=== PATIENT | female | born 1940 | race Caucasian/White ===

== ENCOUNTER 2018-10-08 11:55 | Observation (INO) | payer MEDICARE ==
[~2018-10-08] VITALS: Ht 157.5 cm; Wt 72.7 kg
[~2018-10-08 11:55] MED LIST: ALPR-304 PO; ASPI-1264 PO; ATOR10TA87 PO; CLOP75TA35 PO; FLUT1AER IH; FURO-150 PO; HYDR-4353 PO; LEVO112T61 PO; MECL-111 PO; METO-539 PO; PANT-47 PO; POTA10TA10 PO; VENL150C58 PO
[2018-10-08 12:42] LABS: BASOPHILS # (AUTO) 0.1 X10'3 (0-0.2); EOSINOPHILS # (AUTO) 0.1 X10'3 (0-0.9); HEMATOCRIT 42.6 % (35.0-45.0); HEMOGLOBIN 14.5 g/dl (12.0-16.0); LYMPHOCYTES # (AUTO) 2.7 X10'3 (1.1-4.8); LYMPHOCYTES % (AUTO) 29.4 % (21-51); MEAN CORPUSCULAR HEMOGLOBIN 33.7 PG (27.0-31.0); MEAN CORPUSCULAR HGB CONC 34.1 g/dL (33.0-36.5); MEAN CORPUSCULAR VOLUME 98.8 FL (78-98); MEAN PLATELET VOLUME 8.8 FL (7.4-10.4); MONOCYTES # (AUTO) 0.5 X10'3 (0-0.9); MONOCYTES % (AUTO) 5.9 % (2-12); NEUTROPHILS # (AUTO) 5.7 X10'3 (1.8-7.7); NEUTROPHILS % (AUTO) 62.7 % (42-75); PLATELET COUNT 231 X10'3 (140-440); RED BLOOD COUNT 4.31 X10'6 (4.20-5.60); RED CELL DISTRIBUTION WIDTH 13.4 % (11.5-14.5); WHITE BLOOD COUNT 9.1 X10'3 (4.5-11.0)
[2018-10-08 13:08] LABS: ALANINE AMINOTRANSFERASE 19 U/L (12-78); ALBUMIN 3.2 G/DL (3.4-5.0); ALBUMIN/GLOBULIN RATIO 0.7 (1.1-1.5); ALKALINE PHOSPHATASE 116 IU/L (46-116); ANION GAP 6 (8-16); ASPARTATE AMINO TRANSFERASE 20 U/L (10-37); BILIRUBIN,TOTAL 0.7 MG/DL (0.1-1.0); BLOOD UREA NITROGEN 16 MG/DL (7-18); BUN/CREATININE RATIO 21.9 (6.6-38.0); CALCIUM 8.8 MG/DL (8.5-10.1); CHLORIDE 104 MMOL/L (99-107); CREATININE 0.73 MG/DL (0.40-0.90); GLUCOSE 98 MG/DL (70-104); PARTIAL THROMBOPLASTIN TIME 28 SECONDS (22-32); POTASSIUM 4.5 MMOL/L (3.5-5.1); SODIUM 139 MMOL/L (135-145); TOTAL PROTEIN 7.6 G/DL (6.4-8.2); eGFR 77 ML/MIN
[2018-10-08] MEDS ORDERED: mag hydrox/Alum hydrox/simeth 30ml oral suspension PO PRN (14:45)
[2018-10-08] MEDS ORDERED: aspirin 325mg tablet PO ONE (14:45)
[2018-10-08] MEDS ORDERED: magnesium 2GM in 50ml NS 50 ML IV PRN (14:45)
[2018-10-08] MEDS ORDERED: magnesium 4gm in 100ml NS 100 ML IV PRN (14:45)
[2018-10-08] MEDS ORDERED: ondansetron/PF 4mg/2ml inj IV PRN (14:45)
[2018-10-08] MEDS ORDERED: nitroGLYCERIN 0.4mg SUBLingual tab SL PRN ×2 (14:45)
[2018-10-08] MEDS ORDERED: magnesium hydroxide 30ml (MOM) UD suspension PO PRN (14:45)
[2018-10-08] MEDS ORDERED: magnesium Cl slow-release 64mg tablet PO PRN (14:45)
[2018-10-08] MEDS ORDERED: aminophylline 250mg/10ml inj. IV PRN (14:45)
[2018-10-08] MEDS ORDERED: potassium CL 10mEq/100ml bag 100 ML IV PRN (14:45)
[2018-10-08] MEDS ORDERED: regadenoson 0.4mg/5ml syringe IV ONE (14:45)
[2018-10-08] MEDS ORDERED: potassium Cl 40MEQ/NS 500ml 500 ML IV PRN (14:45)
[2018-10-08] MEDS ORDERED: metoprolol tartrate 1mg/ml inj IV PRN (14:45)
[2018-10-08] MEDS ORDERED: acetaminophen 325mg tablet PO PRN ×2 (14:45)
[2018-10-08] MEDS ORDERED: potassium Cl 20 mEq SR tablet PO PRN ×2 (14:45)
[2018-10-08] MEDS ORDERED: HYDROcodone/acetaminophen 10/325mg tab PO PRN (15:40)
[2018-10-08] MEDS ORDERED: ALPRAZolam 0.25mg tablet PO PRN (15:40)
[2018-10-08 17:01] LABS: MAGNESIUM 1.9 MG/DL (1.5-2.4)
--- NOTE | 2018-10-08 17:39 | NUR ---
Pt arrived from ED and transferred to bed in 313 on the ACCE unit. Pt ambulated with assistance to the bed, however she stated that she was dizzy. Pt will be banded with Fall Risk band. Pt oriented to room, call light usage. technical instructor in room doing an echo with a bubble study.
[2018-10-08 18:00] VITALS: BP 143/78
--- NOTE | 2018-10-08 18:17 | NUR ---
Problems reprioritized. Patient report given, questions answered & plan of care reviewed with GERRI [place].
--- NOTE | 2018-10-08 18:42 | NUR ---
Patient in room MED 313. I have received report from Art RN and had the opportunity to ask questions and assume patient care.
[2018-10-08] MEDS: furosemide 20 MG/2 ML vial IV SCH (20:11)
[2018-10-08 22:00] VITALS: BP 147/75
[2018-10-09] VITALS (11 sets, daily range): BP systolic 115–156; BP diastolic 60–81
[2018-10-09 01:27] LABS: BASOPHILS # (AUTO) 0.1 X10'3 (0-0.2); BASOPHILS % (AUTO) 1.2 % (0-1); EOSINOPHILS # (AUTO) 0.1 X10'3 (0-0.9); EOSINOPHILS % (AUTO) 1.5 % (0-6); HEMATOCRIT 42.1 % (35.0-45.0); HEMOGLOBIN 14.2 g/dl (12.0-16.0); LYMPHOCYTES # (AUTO) 2.5 X10'3 (1.1-4.8); LYMPHOCYTES % (AUTO) 29.7 % (21-51); MEAN CORPUSCULAR HEMOGLOBIN 33.1 PG (27.0-31.0); MEAN CORPUSCULAR HGB CONC 33.6 g/dL (33.0-36.5); MEAN CORPUSCULAR VOLUME 98.4 FL (78-98); MONOCYTES # (AUTO) 0.6 X10'3 (0-0.9); MONOCYTES % (AUTO) 7.5 % (2-12); NEUTROPHILS % (AUTO) 60.1 % (42-75); PLATELET COUNT 218 X10'3 (140-440); RED BLOOD COUNT 4.28 X10'6 (4.20-5.60); RED CELL DISTRIBUTION WIDTH 13.2 % (11.5-14.5); WHITE BLOOD COUNT 8.3 X10'3 (4.5-11.0)
[2018-10-09 01:35] LABS: ALBUMIN 3.1 G/DL (3.4-5.0); ANION GAP 6 (8-16); BLOOD UREA NITROGEN 18 MG/DL (7-18); BUN/CREATININE RATIO 24.3 (6.6-38.0); CHLORIDE 104 MMOL/L (99-107); CHOL/HDL RATIO 2.3 (0.00-4.99); CHOLESTEROL 136 MG/DL (0-200); CREATININE 0.74 MG/DL (0.40-0.90); GLUCOSE 94 MG/DL (70-104); HDL CHOLESTEROL 59 MG/DL (35-60); LDL CHOLESTEROL 68 MG/DL (50-100); MAGNESIUM 1.9 MG/DL (1.5-2.4); POTASSIUM 3.5 MMOL/L (3.5-5.1); SODIUM 139 MMOL/L (135-145); TOTAL CARBON DIOXIDE 29.1 MMOL/L (24-32); TRIGLYCERIDES 75 MG/DL (20-135); eGFR 76 ML/MIN
[2018-10-09] MEDS ORDERED: pantoprazole 40mg Tablet.DR PO SCH (08:00)
[2018-10-09] MEDS ORDERED: clopidogrel 75mg tablet PO SCH (08:00)
[2018-10-09] MEDS ORDERED: venlafaxine XR 75mg capsule (Q24H) PO SCH (08:00)
[2018-10-09] MEDS ORDERED: levoTHYROXINE 112mcg tablet PO SCH (08:00)
[2018-10-09] MEDS ORDERED: K and/or MAG REPLACEMENT MC SCH (08:00)
[2018-10-09] MEDS ORDERED: metoprolol succinate 25mg (24-HOUR) SR. Tablet PO SCH (08:00)
[2018-10-09] MEDS ORDERED: atorvastatin 10mg tablet PO SCH (08:00)
[2018-10-09] MEDS ORDERED: aspirin 325mg tablet PO SCH (08:00)
[2018-10-09] MEDS ORDERED: enoxaparin 40mg/0.4ml syringe SQ SCH (08:00)
[2018-10-09] MEDS ORDERED: aminophylline inj. 10 ML IV ONE (08:47)
[2018-10-09] MEDS ORDERED: regadenoson 0.4mg/5ml syringe IV ONE (08:47)
--- NOTE | 2018-10-09 08:55 | NUR ---
Malnutrition consult. Patient eating 100% of meals, good appetite meeting needs. No muscle weakness. No recent weight loss, patient at [facility]. Appears well nourished. No edema. No malnutrition at this time. Will continue to follow. Addendum: 10/09/18 at [address] Amended: Links added.
--- NOTE | 2018-10-09 11:12 | NUR ---
Homer results posted Paged Dr. Em- "Re; Yamini Rocha- Dania report is posted. let me know if patient will discharge? thank you. Samantha BUNDY [phone]"
[2018-10-09] MEDS: furosemide 20 MG/2 ML vial IV SCH (11:24)
--- NOTE | 2018-10-09 15:00 | NUR ---
PROVIDED PATIENT WITH DISCHARGE INSTRUCTIONS, PATIENT HAS NO NEW PRESCRIPTIONS AND VERBALIZES UNDERSTANDING OF FOLLOW UP INSTRUCTIONS WITH HER PRIMARY CARE DOCTOR. IV REMOVED, CATHETER INTACT, MINIMAL BLEEDING CLEAN GAUZE APPLIED AND SECURED WITH TAPE. PATIENT AWAITING HER RIDE TO GO HOME. PATIENT GOT HERSELF DRESSED AND DENIES ANY QUESTIONS OR CONCERNS.
== END 2018-10-09 15:30 | disposition home or self-care (01) ==
LOC: ER 11:56 → MED 3N 16:26 → EDBEDREQ 16:33
PROVIDERS: ADMIT Hospitalist; ATTEND Hospitalist
DX: R07.2 Precordial pain (principal); I25.119 Atherosclerotic heart disease of native coronary artery with unspecified angina pectoris; I11.0 Hypertensive heart disease with heart failure; I50.9 Heart failure, unspecified; E78.00 Pure hypercholesterolemia, unspecified; E78.5 Hyperlipidemia, unspecified; I25.2 Old myocardial infarction; J44.9 Chronic obstructive pulmonary disease, unspecified; Z87.11 Personal history of peptic ulcer disease; Z79.82 Long term (current) use of aspirin; Z88.0 Allergy status to penicillin
CPT/HCPCS: 36415; 71045; 78452; 80048; 80053; 80061; 83735; 83880; 84484; 85025; 85610; 85730; 87070; 93005; 93017; 93306; 96374; 96376; 99284; A9500; G0378; J0280; J1940; J1650

== ENCOUNTER 2019-03-03 17:08 | Emergency (ER) | payer MEDICARE ==
[~2019-03-03] VITALS: Ht 162.6 cm; Wt 64.5 kg
[~2019-03-03 17:08] MED LIST changes: -FLUT1AER IH; -MECL-111 PO
--- NOTE | 2019-03-03 17:57 | NUR ---
Dr. Cabello is at the bedside at this time.
[2019-03-03 18:03] LABS: BASOPHILS # (AUTO) 0.1 X10'3 (0-0.2); BASOPHILS % (AUTO) 1.1 % (0-1); EOSINOPHILS # (AUTO) 0.1 X10'3 (0-0.9); EOSINOPHILS % (AUTO) 1.2 % (0-6); HEMATOCRIT 45.6 % (35.0-45.0); HEMOGLOBIN 15.5 g/dl (12.0-16.0); LYMPHOCYTES # (AUTO) 2.8 X10'3 (1.1-4.8); MEAN CORPUSCULAR HEMOGLOBIN 33.6 PG (27.0-31.0); MEAN CORPUSCULAR HGB CONC 34.1 g/dL (33.0-36.5); MEAN CORPUSCULAR VOLUME 98.4 FL (78-98); MONOCYTES # (AUTO) 0.6 X10'3 (0-0.9); MONOCYTES % (AUTO) 6.1 % (2-12); NEUTROPHILS # (AUTO) 5.8 X10'3 (1.8-7.7); NEUTROPHILS % (AUTO) 61.6 % (42-75); PLATELET COUNT 260 X10'3 (140-440); RED BLOOD COUNT 4.63 X10'6 (4.20-5.60); RED CELL DISTRIBUTION WIDTH 13.2 % (11.5-14.5); WHITE BLOOD COUNT 9.4 X10'3 (4.5-11.0)
[2019-03-03 18:14] LABS: PARTIAL THROMBOPLASTIN TIME 25 SECONDS (22-32)
[2019-03-03 18:25] LABS: ALANINE AMINOTRANSFERASE 16 U/L (12-78); ALBUMIN 3.3 G/DL (3.4-5.0); ALBUMIN/GLOBULIN RATIO 0.7 (1.1-1.5); ALKALINE PHOSPHATASE 123 IU/L (46-116); ANION GAP 7 (8-16); ASPARTATE AMINO TRANSFERASE 21 U/L (10-37); BILIRUBIN,TOTAL 0.4 MG/DL (0.1-1.0); BLOOD UREA NITROGEN 27 MG/DL (7-18); BUN/CREATININE RATIO 39.1 (6.6-38.0); CALCIUM 9.4 MG/DL (8.5-10.1); CHLORIDE 105 MMOL/L (99-107); CREATININE 0.69 MG/DL (0.40-0.90); GLUCOSE 101 MG/DL (70-104); POTASSIUM 3.9 MMOL/L (3.5-5.1); SODIUM 139 MMOL/L (135-145); TOTAL CARBON DIOXIDE 26.8 MMOL/L (24-32); eGFR 82 ML/MIN
--- NOTE | 2019-03-03 18:28 | NUR ---
Bedside commode brought to the room and pt given water to drink, with Dr. Bell's verbal ok, to encourage ability to void. Lab results are pending at this time.
[2019-03-03] MEDS ORDERED: traMADol 50MG tablet PO ONE (20:20)
[2019-03-03] MEDS ORDERED: AZIT-72 PO (20:20)
[2019-03-03] MEDS ORDERED: TRAM50TA2 PO (20:20)
[2019-03-03 20:30] VITALS: BP 153/65
[2019-03-08] MEDS ORDERED: HYDR-3965 PO (17:02)
== END 2019-03-03 20:45 | disposition home or self-care (01) ==
LOC: ER 17:09
DX: M54.6 Pain in thoracic spine (principal); R07.89 Other chest pain; J21.9 Acute bronchiolitis, unspecified; M81.0 Age-related osteoporosis without current pathological fracture; I25.10 Atherosclerotic heart disease of native coronary artery without angina pectoris; E78.00 Pure hypercholesterolemia, unspecified; I25.2 Old myocardial infarction; M19.90 Unspecified osteoarthritis, unspecified site; F17.200 Nicotine dependence, unspecified, uncomplicated; I11.0 Hypertensive heart disease with heart failure; I50.9 Heart failure, unspecified; Z95.5 Presence of coronary angioplasty implant and graft; Z98.890 Other specified postprocedural states; Z88.0 Allergy status to penicillin; Z79.82 Long term (current) use of aspirin; Z79.899 Other long term (current) drug therapy
CPT/HCPCS: 36415; 71045; 71250; 80053; 84484; 85025; 85610; 85730; 93005; 99284

== ENCOUNTER → 2019-03-08 | Emergency (ER) | payer MEDICARE ==
[~2019-03-08] VITALS: Ht 160 cm; Wt 65.0 kg
[~2019-03-08] MED LIST changes: +AZIT-72 PO; +HYDR-3965 PO; +TRAM50TA2 PO
--- NOTE | 2019-03-08 13:30 | NUR ---
[facility] CALLED FOR NEURO CONSULT. AWAITING CALL BACK FROM DR. DEUCE FIGUEROA
--- NOTE | 2019-03-08 15:50 | NUR ---
patient to ct.
[2019-03-08 16:23] VITALS: BP 141/97
== END | disposition home or self-care (01) ==
LOC: ER 12:47
DX: S22.059D Unspecified fracture of T5-T6 vertebra, subsequent encounter for fracture with routine healing (principal); I25.10 Atherosclerotic heart disease of native coronary artery without angina pectoris; I11.0 Hypertensive heart disease with heart failure; I50.9 Heart failure, unspecified; E78.00 Pure hypercholesterolemia, unspecified; I25.2 Old myocardial infarction; J44.9 Chronic obstructive pulmonary disease, unspecified; M19.90 Unspecified osteoarthritis, unspecified site; M81.0 Age-related osteoporosis without current pathological fracture; F17.200 Nicotine dependence, unspecified, uncomplicated; M54.2 Cervicalgia; Z95.5 Presence of coronary angioplasty implant and graft; Z98.890 Other specified postprocedural states; Z88.0 Allergy status to penicillin; Z79.82 Long term (current) use of aspirin; Z79.899 Other long term (current) drug therapy; X58.XXXD Exposure to other specified factors, subsequent encounter
CPT/HCPCS: 72125; 72128; 99285

== ENCOUNTER 2019-03-26 15:48 | Emergency (ER) | payer MEDICARE ==
[~2019-03-26] VITALS: Ht 162.6 cm; Wt 66.2 kg
[~2019-03-26 15:48] MED LIST changes: -AZIT-72 PO; -HYDR-3965 PO; -TRAM50TA2 PO
[2019-03-26 17:32] VITALS: BP 155/79
--- NOTE | 2019-04-02 12:45 | NUR ---
LEFT MESSAGE [facility] PATIENT TO CALL REGARDING RADIOLOGY RESULTS
[2019-05-02] MEDS ORDERED: METO25TA6 PO (14:55)
[2019-05-07] MEDS ORDERED: IPRA3AMP9 NEB (12:08)
[2019-05-07] MEDS ORDERED: LEVO500T2 PO (12:08)
[2019-05-07] MEDS ORDERED: PRED10TA23 PO (12:12)
[2019-05-07] MEDS ORDERED: FURO-150 PO (14:50)
[2019-05-07] MEDS ORDERED: LISI2.5T2 PO (14:51)
== END 2019-03-26 17:35 | disposition home or self-care (01) ==
LOC: ER 15:48
DX: S46.811A Strain of other muscles, fascia and tendons at shoulder and upper arm level, right arm, initial encounter (principal); S00.03XA Contusion of scalp, initial encounter; M25.551 Pain in right hip; I25.10 Atherosclerotic heart disease of native coronary artery without angina pectoris; I11.0 Hypertensive heart disease with heart failure; I50.9 Heart failure, unspecified; E78.00 Pure hypercholesterolemia, unspecified; I25.2 Old myocardial infarction; J44.9 Chronic obstructive pulmonary disease, unspecified; M19.90 Unspecified osteoarthritis, unspecified site; F32.9 Major depressive disorder, single episode, unspecified; Z98.61 Coronary angioplasty status; Z98.890 Other specified postprocedural states; Z88.0 Allergy status to penicillin; Z79.82 Long term (current) use of aspirin; Z79.899 Other long term (current) drug therapy; Z90.5 Acquired absence of kidney; W01.0XXA Fall on same level from slipping, tripping and stumbling without subsequent striking against object, initial encounter; Y93.89 Activity, other specified; Y92.89 Other specified places as the place of occurrence of the external cause; Y99.8 Other external cause status
CPT/HCPCS: 70450; 73030; 73502; 99284

== ENCOUNTER 2020-01-21 15:55 | Observation (INO) | payer MEDICARE, OTHER ==
[~2020-01-21] VITALS: Ht 162.6 cm; Wt 68.2 kg
[~2020-01-21 15:55] MED LIST changes: -ASPI-1264 PO; -FURO-150 PO; +IPRA3AMP31 NEB; +LISI2.5T2 PO; -METO-539 PO; +METO25TA6 PO; -POTA10TA10 PO
[2020-01-21] MEDS ORDERED: HYDROcodone/acetaminophen 5mg/325mg tablet PO ONE (16:45)
--- NOTE | 2020-01-21 17:00 | NUR ---
PT IS RESTING QUIETLY ON GURNEY
--- NOTE | 2020-01-21 19:47 | NUR ---
PT IS RESTING QUIETLY ON GURNEY, SAID SHE WAS UNABLE TO AMB EARLIER DUE TO PAIN IN RT HIP, PT IS AWARE SHE IS BEING ADMITTED, WAITING FOR HOSPITALIST, EATING SANDWICH, AND WATER, CHRISTI WELL, FAMILY IS ALSO AWARE OF PLAN
[2020-01-21] MEDS ORDERED: normal saline 1000ml 1,000 ML IV SCH (20:26)
[2020-01-21] MEDS ORDERED: ondansetron/PF 4mg/2ml inj IV PRN (20:30)
[2020-01-21] MEDS ORDERED: magnesium 4gm in 100ml NS 100 ML IV PRN (20:30)
[2020-01-21] MEDS ORDERED: acetaminophen 325mg tablet PO PRN ×2 (20:30)
[2020-01-21] MEDS ORDERED: magnesium Cl slow-release 64mg tablet PO PRN (20:30)
[2020-01-21] MEDS ORDERED: morphine 2 MG/ML inj. syringe IV PRN ×2 (20:30)
[2020-01-21] MEDS ORDERED: HYDROcodone/acetaminophen 10/325mg tab PO PRN (20:30)
[2020-01-21] MEDS ORDERED: potassium Cl 20 mEq SR tablet PO PRN ×2 (20:30)
[2020-01-21] MEDS ORDERED: magnesium 2GM in 50ml NS 50 ML IV PRN (20:30)
[2020-01-21] MEDS ORDERED: potassium CL 10mEq/100ml bag 100 ML IV PRN ×2 (20:30)
[2020-01-21] MEDS ORDERED: temazepam 15mg capsule PO PRN (21:00)
[2020-01-21 21:02] LABS: BASOPHILS # (AUTO) 0.1 X10'3 (0-0.2); EOSINOPHILS # (AUTO) 0.1 X10'3 (0-0.9); EOSINOPHILS % (AUTO) 1.2 % (0-6); HEMATOCRIT 38.6 % (35.0-45.0); HEMOGLOBIN 12.9 g/dl (12.0-16.0); LYMPHOCYTES # (AUTO) 2.8 X10'3 (1.1-4.8); LYMPHOCYTES % (AUTO) 29.2 % (21-51); MEAN CORPUSCULAR HEMOGLOBIN 32.9 PG (27.0-31.0); MEAN CORPUSCULAR HGB CONC 33.3 g/dL (33.0-36.5); MEAN CORPUSCULAR VOLUME 98.9 FL (78-98); MONOCYTES # (AUTO) 0.7 X10'3 (0-0.9); MONOCYTES % (AUTO) 7.8 % (2-12); NEUTROPHILS # (AUTO) 5.8 X10'3 (1.8-7.7); NEUTROPHILS % (AUTO) 60.8 % (42-75); PLATELET COUNT 272 X10'3 (140-440); RED BLOOD COUNT 3.91 X10'6 (4.20-5.60); RED CELL DISTRIBUTION WIDTH 13.3 % (11.5-14.5); WHITE BLOOD COUNT 9.6 X10'3 (4.5-11.0)
[2020-01-21 21:18] LABS: ANION GAP 7 (8-16); BLOOD UREA NITROGEN 18 MG/DL (7-18); BUN/CREATININE RATIO 23.4 (6.6-38.0); CALCIUM 8.8 MG/DL (8.5-10.1); CHLORIDE 104 MMOL/L (99-107); CREATININE 0.77 MG/DL (0.40-0.90); GLUCOSE 165 MG/DL (70-104); POTASSIUM 3.8 MMOL/L (3.5-5.1); SODIUM 136 MMOL/L (135-145); TOTAL CARBON DIOXIDE 25.4 MMOL/L (24-32); eGFR 72 ML/MIN
[2020-01-21 21:45] VITALS: BP 116/63
[2020-01-21 21:50] VITALS: BP 116/63
[2020-01-21] MEDS: HYDROcodone/acetaminophen 5mg/325mg tablet PO PRN (22:13)
[2020-01-22] MEDS: HYDROcodone/acetaminophen 5mg/325mg tablet PO PRN ×2 (04:47→10:40)
[2020-01-22 06:00] VITALS: BP 142/64
--- NOTE | 2020-01-22 06:05 | NUR ---
received report from mimi herrera
--- NOTE | 2020-01-22 06:13 | NUR ---
Problems reprioritized. Patient report given, questions answered & plan of care reviewed with Cristin TALLEY.
[2020-01-22 07:23] LABS: BASOPHILS # (AUTO) 0.1 X10'3 (0-0.2); EOSINOPHILS # (AUTO) 0.2 X10'3 (0-0.9); EOSINOPHILS % (AUTO) 2.1 % (0-6); HEMATOCRIT 39.3 % (35.0-45.0); HEMOGLOBIN 13.2 g/dl (12.0-16.0); LYMPHOCYTES # (AUTO) 2.8 X10'3 (1.1-4.8); LYMPHOCYTES % (AUTO) 30.2 % (21-51); MEAN CORPUSCULAR HEMOGLOBIN 33.3 PG (27.0-31.0); MEAN CORPUSCULAR HGB CONC 33.6 g/dL (33.0-36.5); MEAN CORPUSCULAR VOLUME 99.2 FL (78-98); MEAN PLATELET VOLUME 8.4 FL (7.4-10.4); MONOCYTES # (AUTO) 0.9 X10'3 (0-0.9); MONOCYTES % (AUTO) 9.5 % (2-12); NEUTROPHILS # (AUTO) 5.3 X10'3 (1.8-7.7); NEUTROPHILS % (AUTO) 57.2 % (42-75); PLATELET COUNT 294 X10'3 (140-440); RED BLOOD COUNT 3.96 X10'6 (4.20-5.60); RED CELL DISTRIBUTION WIDTH 13.4 % (11.5-14.5); WHITE BLOOD COUNT 9.3 X10'3 (4.5-11.0)
[2020-01-22 07:37] LABS: ANION GAP 8 (8-16); BLOOD UREA NITROGEN 17 MG/DL (7-18); BUN/CREATININE RATIO 26.2 (6.6-38.0); CALCIUM 8.7 MG/DL (8.5-10.1); CHLORIDE 104 MMOL/L (99-107); CREATININE 0.65 MG/DL (0.40-0.90); GLUCOSE 103 MG/DL (70-104); MAGNESIUM 1.9 MG/DL (1.5-2.4); POTASSIUM 3.8 MMOL/L (3.5-5.1); SODIUM 138 MMOL/L (135-145); TOTAL CARBON DIOXIDE 26.2 MMOL/L (24-32); eGFR 88 ML/MIN
[2020-01-22] MEDS ORDERED: K and/or MAG REPLACEMENT MC SCH (08:00)
[2020-01-22] MEDS ORDERED: heparin, porcine 5000 units/ml vial SQ SCH (08:00)
[2020-01-22] MEDS ORDERED: ALPRAZolam 0.25mg tablet PO PRN (09:35)
[2020-01-22 10:00] VITALS: BP 107/58
[2020-01-22] MEDS: ipratropium/albuterol 3ml nebule NEB SCH ×2 (11:22→16:10)
--- NOTE | 2020-01-22 11:28 | NUR ---
Student documentation: I have reviewed all interventions, assessments performed and documented by [place] [facility]. Student Medication Administration: For this medication-pass time frame, all medication were reviewed, dispensed, administered and documented per hospital policy by [place] [facility] [facility].
[2020-01-22] MEDS ORDERED: ipratropium/albuterol 3ml nebule NEB SCH (13:00)
--- NOTE | 2020-01-22 15:06 | NUR ---
Student documentation: I have reviewed assessment performed and documented by Shreya HASTINGS [facility].
--- NOTE | 2020-01-22 17:09 | NUR ---
pt d/c with instructions, understanding of instructions and w/all belongings in wheelchair accompanied by nursing staff to private vehicle to go home and f/u w/pcp
[2020-01-23] MEDS ORDERED: atorvastatin 10mg tablet PO SCH (08:00)
[2020-01-23] MEDS ORDERED: venlafaxine XR 75mg capsule (Q24H) PO SCH (08:00)
[2020-01-23] MEDS ORDERED: metoprolol tartrate 12.5mg (1/2 tablet) PO SCH (08:00)
[2020-01-23] MEDS ORDERED: pantoprazole 40mg Tablet.DR PO SCH (08:00)
[2020-01-23] MEDS ORDERED: levoTHYROXINE 112mcg tablet PO SCH (08:00)
[2020-01-23] MEDS ORDERED: clopidogrel 75mg tablet PO SCH (08:00)
[2020-01-23] MEDS ORDERED: lisinopril 2.5mg tablet PO SCH (08:00)
[2020-01-29] MEDS ORDERED: APIX5TAB3 PO (16:41)
[2020-01-29] MEDS ORDERED: MONT10TA26 PO (16:41)
[2020-01-29] MEDS ORDERED: FURO20TA4 PO (16:41)
== END 2020-01-22 17:00 | disposition home health service (06) ==
LOC: ER 15:55 → ORTHO 4S 20:26 → CMPBEDREQ 01-22 02:49
PROVIDERS: ADMIT Internal Medicine; ATTEND Family Medicine
DX: M25.551 Pain in right hip (principal); M25.561 Pain in right knee; J44.9 Chronic obstructive pulmonary disease, unspecified; I25.2 Old myocardial infarction; I25.119 Atherosclerotic heart disease of native coronary artery with unspecified angina pectoris; E78.5 Hyperlipidemia, unspecified; E03.9 Hypothyroidism, unspecified; I11.0 Hypertensive heart disease with heart failure; I50.9 Heart failure, unspecified; F32.9 Major depressive disorder, single episode, unspecified; G89.29 Other chronic pain; E78.00 Pure hypercholesterolemia, unspecified; F17.200 Nicotine dependence, unspecified, uncomplicated; Z95.5 Presence of coronary angioplasty implant and graft; Z90.5 Acquired absence of kidney; Z96.643 Presence of artificial hip joint, bilateral; Z87.11 Personal history of peptic ulcer disease; X50.1XXA Overexertion from prolonged static or awkward postures, initial encounter; Y93.E1 Activity, personal bathing and showering; Y92.002 Bathroom of unspecified non-institutional (private) residence as the place of occurrence of the external cause
CPT/HCPCS: 36415; 73502; 73560; 80048; 83735; 85025; 85610; 87081; 94640; 94760; 96360; 96361; 96372; 97161; 97530; 99285; G0378; J1644; J7030

== ENCOUNTER 2020-12-07 11:19 | Emergency (ER) | payer MEDICARE ==
[~2020-12-07] VITALS: Ht 165.1 cm; Wt 65.9 kg
[~2020-12-07 11:19] MED LIST changes: +APIX5TAB3 PO; +CLOP75TA34 PO; -CLOP75TA35 PO; -IPRA3AMP31 NEB; +LISI2.5T14 PO; -LISI2.5T2 PO; -METO25TA6 PO; +MONT10TA32 PO
[2020-12-07 11:51] LABS: BASOPHILS # (AUTO) 0.1 X10'3 (0-0.2); BASOPHILS % (AUTO) 0.4 % (0-1); EOSINOPHILS % (AUTO) 0.2 % (0-6); HEMATOCRIT 35.5 % (35.0-45.0); MEAN CORPUSCULAR HEMOGLOBIN 32.3 PG (27.0-31.0)
[2020-12-07 11:52] LABS: LYMPHOCYTES # (AUTO) 1.1 X10'3 (1.1-4.8); LYMPHOCYTES % (AUTO) 6.3 % (21-51); MEAN CORPUSCULAR HGB CONC 33.8 g/dL (33.0-36.5); MEAN CORPUSCULAR VOLUME 95.5 FL (78-98); MEAN PLATELET VOLUME 7.8 FL (7.4-10.4); MONOCYTES # (AUTO) 1.1 X10'3 (0-0.9); MONOCYTES % (AUTO) 6.2 % (2-12); NEUTROPHILS # (AUTO) 15.3 X10'3 (1.8-7.7); NEUTROPHILS % (AUTO) 86.9 % (42-75); PLATELET COUNT 276 X10'3 (140-440); RED BLOOD COUNT 3.72 X10'6 (4.20-5.60); RED CELL DISTRIBUTION WIDTH 12.6 % (11.5-14.5); WHITE BLOOD COUNT 17.6 X10'3 (4.5-11.0)
[2020-12-07 12:02] LABS: CLARITY,URINE CLOUDY (Clear); COLOR,URINE YELLOW (Yellow); GLUCOSE, URINE NEGATIVE (Neg); KETONES,URINE TRACE mg/dl (Neg); LEUKOCYTE ESTERASE ,URINE NEGATIVE (Neg); NITRITES, URINE NEGATIVE (Neg); OCCULT BLOOD,URINE TRACE-INTACT (Neg); PH,URINE 6.5 (4.8-8.0); PROTEIN,URINE TRACE mg/dl (Neg)
[2020-12-07 12:04] LABS: UA COLLECTION TYPE VOIDED
[2020-12-07 12:10] LABS: BACTERIA,URINE 1+ /HPF (Neg); HYALINE CASTS 0-3 /LPF (NEGATIVE); MUCUS STRANDS FEW /LPF (Neg); RBC,URINE 0-2 /HPF (0-2); SQUAMOUS EPITHELIAL CELL,UR MODERATE /LPF (FEW); WBC,URINE 0-4 /HPF (0-4)
[2020-12-07] MEDS ORDERED: levoFLOXACIN-Levaquin 500mg/D5 100 ML IV ONE (12:30)
[2020-12-07 12:31] LABS: ALANINE AMINOTRANSFERASE 8 U/L (12-78); ALBUMIN 2.8 G/DL (3.4-5.0); ALBUMIN/GLOBULIN RATIO 0.7 (1.1-1.5); ALKALINE PHOSPHATASE 123 IU/L (46-116); ANION GAP 8 (8-16); ASPARTATE AMINO TRANSFERASE 13 U/L (10-37); BILIRUBIN,TOTAL 0.7 MG/DL (0.1-1.0); BLOOD UREA NITROGEN 15 MG/DL (7-18); BUN/CREATININE RATIO 23.4 (6.6-38.0); CHLORIDE 105 MMOL/L (99-107); CREATININE 0.64 MG/DL (0.40-0.90); GLUCOSE 117 MG/DL (70-104); POTASSIUM 3.8 MMOL/L (3.5-5.1); SODIUM 138 MMOL/L (135-145); TOTAL CARBON DIOXIDE 25.5 MMOL/L (24-32); TOTAL PROTEIN 6.9 G/DL (6.4-8.2); eGFR 89 ML/MIN
[2020-12-07] MEDS ORDERED: LEVO500T89 PO (13:36)
[2020-12-07 14:38] VITALS: BP 114/65
== END 2020-12-07 15:17 | disposition home or self-care (01) ==
LOC: ER 11:20
DX: J18.9 Pneumonia, unspecified organism (principal); I11.0 Hypertensive heart disease with heart failure; I50.9 Heart failure, unspecified; I25.10 Atherosclerotic heart disease of native coronary artery without angina pectoris; E78.00 Pure hypercholesterolemia, unspecified; I25.2 Old myocardial infarction; J44.9 Chronic obstructive pulmonary disease, unspecified; Z20.822 Contact with and (suspected) exposure to COVID-19; Z98.890 Other specified postprocedural states; Z88.0 Allergy status to penicillin; Z79.01 Long term (current) use of anticoagulants; Z79.899 Other long term (current) drug therapy
CPT/HCPCS: 36415; 71045; 80053; 81001; 83605; 84145; 85025; 87040; 87635; 93005; 96365; 96366; 99285; C9803; J1956

== ENCOUNTER 2023-05-18 20:29 | Emergency (ER) | payer MEDICARE, MEDICAID ==
[~2023-05-18] VITALS: Ht 162.6 cm; Wt 78.2 kg
[~2023-05-18 20:29] MED LIST changes: +MONT-40 PO; -MONT10TA32 PO
[2023-05-18] MEDS ORDERED: acetaminophen 325mg tablet PO ONE (21:30)
[2023-05-18 22:22] LABS: BASOPHILS # (AUTO) 0.1 X10'3 (0-0.2); EOSINOPHILS # (AUTO) 0.1 X10'3 (0-0.9); EOSINOPHILS % (AUTO) 2.5 % (0-6); HEMATOCRIT 38.8 % (35.0-45.0); HEMOGLOBIN 12.9 g/dl (12.0-16.0); LYMPHOCYTES # (AUTO) 1.9 X10'3 (1.1-4.8); LYMPHOCYTES % (AUTO) 35.2 % (21-51); MEAN CORPUSCULAR HEMOGLOBIN 32.8 PG (27.0-31.0); MEAN CORPUSCULAR HGB CONC 33.2 g/dL (33.0-36.5); MEAN CORPUSCULAR VOLUME 98.8 FL (78-98); MEAN PLATELET VOLUME 7.8 FL (7.4-10.4); MONOCYTES # (AUTO) 0.6 X10'3 (0-0.9); MONOCYTES % (AUTO) 11.6 % (2-12); NEUTROPHILS # (AUTO) 2.7 X10'3 (1.8-7.7); NEUTROPHILS % (AUTO) 49.7 % (42-75); PLATELET COUNT 182 X10'3 (140-440); RED BLOOD COUNT 3.92 X10'6 (4.20-5.60); RED CELL DISTRIBUTION WIDTH 13.2 % (11.5-14.5); WHITE BLOOD COUNT 5.4 X10'3 (4.5-11.0)
[2023-05-18 22:36] LABS: ALANINE AMINOTRANSFERASE 15 U/L (12-78); ALBUMIN 2.9 G/DL (3.4-5.0); ALBUMIN/GLOBULIN RATIO 0.6 (1.1-1.5); ALKALINE PHOSPHATASE 120 IU/L (46-116); ANION GAP 2 (8-16); ASPARTATE AMINO TRANSFERASE 29 U/L (10-37); BILIRUBIN,TOTAL 0.3 MG/DL (0.1-1.0); BLOOD UREA NITROGEN 21 MG/DL (7-18); BUN/CREATININE RATIO 24.1 (10.0-20.0); CHLORIDE 103 MMOL/L (99-107); CREATININE 0.87 MG/DL (0.40-0.90); GLUCOSE 117 MG/DL (70-104); SODIUM 137 MMOL/L (135-145); TOTAL CARBON DIOXIDE 32.2 MMOL/L (24-32); TOTAL PROTEIN 7.5 G/DL (6.4-8.2); eCRCL 42 ML/MIN; eGFR 62 ML/MIN
[2023-05-18 22:44] LABS: PRO BRAIN NATRIURETIC PEPTIDE 1544 PG/ML (0-450)
[2023-05-18 22:52] VITALS: O2SAT 95
[2023-05-19 00:57] VITALS: BP 106/59; PULSE 67; RESP 17; TEMP 98.3
== END 2023-05-19 00:58 | disposition home or self-care (01) ==
LOC: ER 20:30
DX: R07.9 Chest pain, unspecified (principal); M77.8 Other enthesopathies, not elsewhere classified; I11.0 Hypertensive heart disease with heart failure; J44.9 Chronic obstructive pulmonary disease, unspecified; F32.A Depression, unspecified; Z88.0 Allergy status to penicillin; Z79.899 Other long term (current) drug therapy
CPT/HCPCS: 36415; 71045; 80053; 83880; 84484; 85025; 93005; 99285